=== PATIENT | female | born 1955 | race Caucasian/White ===

== ENCOUNTER 2017-11-22 13:07 | Emergency (ER) | payer BC ==
[~2017-11-22] VITALS: Ht 147.3 cm; Wt 59.1 kg
[2017-11-22 15:04] LABS: BASO # 0.1 (0.0-0.2); BASO % 0.9 % (0.0-2.0); EOS % 0.3 % (0-4.0); GRAN # 8.1 (1.4-6.5); HEMATOCRIT 37.1 % (37.0-47.0); HEMOGLOBIN 12.4 g/dl (12.5-16.0); LYMPH # 2.5 (1.2-3.4); LYMPH % 21.7 % (20.0-51.0); MEAN CELL VOLUME 92 fl (80.0-100.0); MEAN CORPUSCULAR HEMOGLOBIN 31 pg (27.0-31.0); MEAN CORPUSCULAR HGB CONC 33 g/dl (33.0-37.0); MEAN PLATELET VOLUME 11.8 fl (7.4-10.4); MONO # 0.9 (0.1-0.6); MONO % 7.8 % (1.7-9.3); PLATELET COUNT 240 K/mm3 (130-400); RED BLOOD COUNT 4.04 M/mm3 (4.10-5.30)
[2017-11-22] MEDS ORDERED: VIVELLE-DO0.05 MG/24 TD (15:04)
[2017-11-22] MEDS ORDERED: SYNTHROID0.1 MG/TAB PO (15:04)
[2017-11-22 15:13] LABS: ALANINE AMINOTRANSFERASE 34 U/L (9-52); ALKALINE PHOSPHATASE 62 U/L (50-136); ANION GAP 11 mmol/L (7-16); AST,SGOT 24 U/L (15-37); BILIRUBIN,TOTAL 0.3 mg/dL (0.0-1.0); BLOOD UREA NITROGEN 16 mg/dL (7-17); C-REACTIVE PROTEIN 2.4 mg/dL (0.0-0.9); CALCIUM 9.7 mg/dL (8.4-10.2); CARBON DIOXIDE 27 mmol/L (22-30); CHLORIDE 101 mmol/L (98-107); CREATININE, serum 0.69 mg/dL (0.52-1.25); GLUCOSE 135 mg/dL (74-106); LIPASE 109 U/L (23-300); POTASSIUM 4.3 mmol/L (3.4-5.0); SODIUM 139 mmol/L (137-145); TOTAL PROTEIN 7.3 gm/dL (6.4-8.2)
[2017-11-22 15:23] LABS: TROPONIN-I < 0.012 ng/mL (0.000-0.034)
[2017-11-22 16:19] LABS: COLLECTION METHOD CLEAN CATCH
[2017-11-22 16:35] LABS: PH 7 (5-8); SQUAMOUS EPITHELIAL None Seen /hpf; URINE APPEARANCE Clear; URINE BACTERIA None Seen /hpf; URINE BILIRUBIN Negative (NEGATIVE); URINE BLOOD Negative (NEGATIVE); URINE COLOR Colorless; URINE GLUCOSE Negative (NEGATIVE); URINE KETONE Trace (NEGATIVE); URINE LEUKOCYTE ESTERASE Negative (NEGATIVE); URINE NITRATE Negative (NEGATIVE); URINE PROTEIN(semi-quant) Negative (NEGATIVE); URINE RBC 0-2 /hpf; URINE UROBILINOGEN Negative (NEGATIVE)
[2017-11-22 17:17] VITALS: BP 126/67
[2017-11-22 18:00] VITALS: PULSE 75; TEMP 98
[2017-11-22] MEDS ORDERED: LIDODERM 5% PATC1 EA TP (18:17)
[2017-11-22] MEDS ORDERED: PERCOCET 325 MG1 TA2 PO (18:17)
== END 2017-11-22 18:45 | disposition home or self-care (01) ==
LOC: COL.ER 13:07
PROVIDERS: Emergency Medicine
DX: R10.30 Lower abdominal pain, unspecified (principal); Z90.89 Acquired absence of other organs; Z90.710 Acquired absence of both cervix and uterus
CPT/HCPCS: J1170; J1885; J2405; J7030; J7050; Q9967

== ENCOUNTER 2021-07-29 13:12 | Outpatient (CLI) | payer BC ==
[2021-07-29] VITALS (7 sets, daily range): BP systolic 108–128; BP diastolic 55–71; PULSE 62–70; TEMP 98.9
[~2021-07-29] VITALS: Ht 147.3 cm; Wt 58.1 kg
[~2021-07-29 13:12] MED LIST: LIDODERM 5% PATC1 EA TP; PERCOCET 325 MG1 TA2 PO; SYNTHROID0.1 MG/TAB PO; VIVELLE-DO0.05 MG/24 TD
[2021-07-29] MEDS ORDERED: PRILOSEC 20MG20 MG PO (14:30)
[2021-07-29] MEDS ORDERED: MASON NATURAL2000 IU PO (14:30)
[2021-07-29] MEDS ORDERED: VITAMINC1000TA PO (14:30)
[2021-07-29] MEDS ORDERED: OMEGA-3 1000 MG1 CAP PO (14:31)
== END 2021-07-29 16:44 ==
LOC: EUO 13:12
DX: U07.1 COVID-19 (principal); R73.03 Prediabetes
CPT/HCPCS: M0247; Q0247